=== PATIENT | male | born 1945 | race Caucasian/White ===

== ENCOUNTER 2022-02-23 18:37 | Observation (INO) | payer MEDICARE ==
[~2022-02-23] VITALS: Ht 172.7 cm; Wt 89.0 kg
[2022-02-23] VITALS (18 sets, daily range): BP systolic 94–159; BP diastolic 51–87
[2022-02-23 19:39] LABS: HEMATOCRIT 38.5 % (39.0-50.0); HEMOGLOBIN 12.6 g/dl (14.0-18.0); IMMATURE GRANULOCYTES 0.3 % (0.0-5.0); MEAN CELL VOLUME 89.1 fL CALC (80.0-100.0); MEAN CORPUSCULAR HGB 29.2 pG CALC (26.0-32.0); MEAN CORPUSCULAR HGB CONC 32.7 g/dL CAL (32.0-36.0); NEUT# 20.09 thou/uL (1.82-7.42); RED BLOOD COUNT 4.32 mill/uL (4.70-6.10); RED CELL DISTRI WIDTH 13.3 % (11.5-15.5)
[2022-02-23 19:52] LABS: ALBUMIN 4.3 g/dL (3.2-5.0); ALKALINE PHOSPHATASE 154 u/l (38-126); ANION GAP 15 (6-22 (CALC)); BILIRUBIN, TOTAL 0.4 mg/dL (0.0-1.4); BUN 44 mg/dL (8-23); BUN/CREATININE RATIO 28 (12-20 (CALC)); CARBON DIOXIDE 24 mmol/l (22-30); CHLORIDE 102 mmol/l (95-108); CREATININE 1.6 mg/dL (0.7-1.3); GFR FOR AFR.AMER. 51 ML/MIN (>=60 (CALC)); GFR OTHER RACES 42 ML/MIN (>=60 (CALC)); MAGNESIUM 1.8 mg/dL (1.6-2.3); POTASSIUM 3.8 mmol/l (3.5-5.1); SGOT/AST 21 u/l (19-48); SODIUM 137 mmol/l (137-146); TOTAL PROTEIN 8.2 g/dL (6.3-8.2)
[2022-02-23 19:54] LABS: D-DIMER 0.32 mg/L (0.19-0.60)
[2022-02-23 19:58] LABS: ACT PARTIAL THROMBO TIME 27.7 SECONDS (20.0-32.5); PROTHROMBIN TIME 10.5 SECONDS (9.0-12.5)
[2022-02-23 20:05] LABS: MYOGLOBIN 84 ng/mL (0 - 121)
[2022-02-23 20:07] LABS: URINE BILIRUBIN - DIPSTICK NEGATIVE (NEGATIVE); URINE BLOOD DIPSTICK NEGATIVE (NEGATIVE); URINE COLOR YELLOW; URINE GLUCOSE - DIPSTICK NEGATIVE (NEGATIVE); URINE KETONE NEGATIVE (NEGATIVE); URINE LEUK ESTERASE NEGATIVE (NEGATIVE); URINE NITRITE - DIPSTICK NEGATIVE (Negative); URINE PROTEIN - DIPSTICK NEGATIVE (NEG-TRACE); URINE SPECIFIC GRAVITY 1.015; URINE UROBILINOGEN - DIPSTICK 0.2 E.U./dL (0.2)
[2022-02-23 20:23] LABS: TSH, 3RD GENERATION 3.06 uIU/mL (0.47 - 4.68)
[2022-02-23] MEDS ORDERED: FLUOXETINE20 MG PO (21:33)
[2022-02-23] MEDS ORDERED: TORSEMIDE20 M1 PO (21:33)
[2022-02-23] MEDS ORDERED: LIPITOR40 M1 PO (21:34)
[2022-02-23] MEDS ORDERED: PROPRANOLOL HCL40 MG PO (21:35)
[2022-02-23] MEDS ORDERED: MEMANTINE HYDROC5 MG (21:36)
[2022-02-23] MEDS ORDERED: ALLOPURINOL100 MG PO (21:36)
[2022-02-23] MEDS ORDERED: ELIQUIS5 MG PO (21:37)
[2022-02-23] MEDS ORDERED: SPIRONOLACTONE25 MG PO (21:38)
[2022-02-23] MEDS ORDERED: NOVOLIN 70/30 SC (21:39)
[2022-02-23] MEDS ORDERED: VITAMIN B-12500 MCG PO (21:39)
[2022-02-24 04:24] VITALS: BP 132/75
[2022-02-24 08:00] VITALS: BP 121/85
[2022-02-24 09:13] LABS: HEMATOCRIT 35.2 % (39.0-50.0); HEMOGLOBIN 11.4 g/dl (14.0-18.0); IMMATURE GRANULOCYTES 0.1 % (0.0-5.0); MEAN CELL VOLUME 89.8 fL CALC (80.0-100.0); MEAN CORPUSCULAR HGB 29.1 pG CALC (26.0-32.0); MEAN CORPUSCULAR HGB CONC 32.4 g/dL CAL (32.0-36.0); NEUT# 10.83 thou/uL (1.82-7.42); RED BLOOD COUNT 3.92 mill/uL (4.70-6.10); RED CELL DISTRI WIDTH 13.2 % (11.5-15.5)
[2022-02-24 09:28] LABS: ANION GAP 12 (6-22 (CALC)); BUN 31 mg/dL (8-23); BUN/CREATININE RATIO 24 (12-20 (CALC)); CARBON DIOXIDE 24 mmol/l (22-30); CHLORIDE 104 mmol/l (95-108); CREATININE 1.3 mg/dL (0.7-1.3); GFR FOR AFR.AMER. > 60 ML/MIN (>=60 (CALC)); GFR OTHER RACES 53 ML/MIN (>=60 (CALC)); POTASSIUM 4.1 mmol/l (3.5-5.1); SODIUM 136 mmol/l (137-146)
[2022-02-24 14:38] VITALS: BP 144/82
[2022-02-24 18:55] VITALS: BP 123/75
[2022-02-25 04:05] VITALS: BP 122/72
[2022-02-25 06:36] VITALS: BP 121/73
[2022-02-25] MEDS ORDERED: DOXYCYCLINE100 MG PO (09:20)
== END 2022-02-25 12:31 | disposition home health service (06) ==
LOC: ED 18:37 → ED-I 21:00 → ED 21:13 → MS2 21:14
PROVIDERS: Family Medicine; ADMIT Internal Medicine; ATTEND Internal Medicine
PROC: 0T9B70Z Drainage of Bladder with Drainage Device, Via Natural or Artificial Opening (ICD-10-PCS; principal; 2022-02-23)
DX: A41.9 Sepsis, unspecified organism (principal); J18.9 Pneumonia, unspecified organism; R65.20 Severe sepsis without septic shock; G93.41 Metabolic encephalopathy; E87.1 Hypo-osmolality and hyponatremia; E86.0 Dehydration; I10 Essential (primary) hypertension; E11.9 Type 2 diabetes mellitus without complications; I48.91 Unspecified atrial fibrillation; F03.90 Unspecified dementia, unspecified severity, without behavioral disturbance, psychotic disturbance, mood disturbance, and anxiety; G14 Postpolio syndrome; Z79.4 Long term (current) use of insulin; Z79.01 Long term (current) use of anticoagulants; Z86.718 Personal history of other venous thrombosis and embolism; Z20.822 Contact with and (suspected) exposure to COVID-19